=== PATIENT | female | born 1955 | race Caucasian/White ===

== ENCOUNTER 2020-05-17 07:54 | Day surgery (SDC) | payer BC, MEDICARE ==
[~2020-05-17 07:54] MED LIST: Dextrose 5%-0.45% NaCl 1,000 ML IV SCH; Midazolam 1 MG/ML 2 ML SDV ONE; fentaNYL 100 MCG/2 ML SDV ONE
[2020-05-17] MEDS ORDERED: fentaNYL 100 MCG/2 ML SDV IV ONE ×5 (07:55→08:50)
[2020-05-17] MEDS ORDERED: Midazolam 1 MG/ML 2 ML SDV IV ONE ×10 (07:55→08:46)
--- NOTE | 2020-05-17 10:59 | OR ---
DATE: 05/17/2020 PREOPERATIVE DIAGNOSIS: Screening colonoscopy. POSTOPERATIVE DIAGNOSIS: Screening colonoscopy. PROCEDURE: Total colonoscopy. ANESTHESIA: Conscious sedation with IV Versed and fentanyl. SPECIMEN: None. FINDINGS: Normal colonoscopy. RECOMMENDATIONS: Followup screening colonoscopy in 10 years or sooner for symptoms. INDICATIONS FOR PROCEDURE: This 64-year-old female has had a prior colonoscopy over 10 years ago that was normal. She now presents for repeat screening. PROCEDURE IN DETAIL: After adequate preparation, colonoscope was inserted into the rectum. This was somewhat difficult to pass to the cecum, but eventually with the manipulation, I was able to drop into the cecum and this was confirmed by light shining in the right lower quadrant and by palpation and visualization of the ileocecal valve. The bowel prep was excellent. On withdrawal of the scope, no abnormalities were noted. Anal and rectal examinations were also normal. Air was suctioned from the colon and the scope removed. [facility] /[id number]
[2020-05-17] MEDS ORDERED: Ondansetron 4 MG/2 ML SDV IVPUSH ONE (11:22)
[2020-05-17] MEDS ORDERED: Scopolamine 1.5 MG Transdermal Patch TOP ONE (12:46)
[2020-05-17] MEDS ORDERED: Scopolamine 1.5 MG Transdermal Patch ONE (12:47)
[2020-05-17 13:03] VITALS: PULSE 70
[2020-05-17 13:43] VITALS: BP 96/61
== END 2020-05-17 14:35 | disposition home or self-care (01) ==
LOC: DL.ENDO 07:54
PROVIDERS: ATTEND Surgery
DX: Z12.11 Encounter for screening for malignant neoplasm of colon (principal); E03.9 Hypothyroidism, unspecified; Z01.812 Encounter for preprocedural laboratory examination; Z20.822 Contact with and (suspected) exposure to COVID-19; Z88.8 Allergy status to other drugs, medicaments and biological substances; Z88.2 Allergy status to sulfonamides; Z79.899 Other long term (current) drug therapy; Z79.890 Hormone replacement therapy
CPT/HCPCS: 45378; 87635; A9270; J2250; J2405; J3010; J7042; U0002